=== PATIENT | female | born 1990 | race Caucasian/White ===

== ENCOUNTER 2019-06-24 13:27 | Emergency (ER) | payer OTHER ==
[~2019-06-24] VITALS: Ht 180.3 cm; Wt 87.1 kg
== END 2019-06-24 18:22 | disposition home or self-care (01) ==
LOC: ER 13:27
DX: O26.891 Other specified pregnancy related conditions, first trimester (principal); R73.9 Hyperglycemia, unspecified; Z34.82 Encounter for supervision of other normal pregnancy, second trimester

== ENCOUNTER 2019-07-06 12:43 | Emergency (ER) | payer OTHER ==
[~2019-07-06] VITALS: Ht 180.3 cm; Wt 99.8 kg
== END 2019-07-06 15:25 | disposition home or self-care (01) ==
LOC: ER 12:43
DX: M54.89 Other dorsalgia (principal)

== ENCOUNTER → 2019-09-05 | Outpatient (CLI) | payer OTHER | END | disposition home or self-care (01) | LOC: PRENATAL 10:00 | DX: O35.3XX0 Maternal care for (suspected) damage to fetus from viral disease in mother, not applicable or unspecified (principal); O34.219 Maternal care for unspecified type scar from previous cesarean delivery; O28.3 Abnormal ultrasonic finding on antenatal screening of mother; O28.1 Abnormal biochemical finding on antenatal screening of mother ==

== ENCOUNTER 2019-11-06 12:38 | Outpatient (CLI) | payer OTHER | END 2019-11-06 14:02 | disposition home or self-care (01) | LOC: NST 12:38 | DX: Z34.83 Encounter for supervision of other normal pregnancy, third trimester (principal) ==

== ENCOUNTER → 2019-11-07 | Outpatient (CLI) | payer OTHER | END | disposition home or self-care (01) | LOC: PRENATAL 10:00 | DX: O26.843 Uterine size-date discrepancy, third trimester (principal); O28.3 Abnormal ultrasonic finding on antenatal screening of mother; O34.211 Maternal care for low transverse scar from previous cesarean delivery ==

== ENCOUNTER 2020-01-19 09:39 | Inpatient (IN) | payer OTHER ==
[~2020-01-19] VITALS: Ht 180.3 cm; Wt 90.7 kg
[2020-01-19] MEDS ORDERED: PRENATAL TABLE1 EACH PO (10:27)
== END 2020-01-22 16:09 | disposition home or self-care (01) | DRG 785 ==
LOC: OB/GYN 09:39 → LDR 09:39 → O/R 14:44 → OB/GYN 17:37
PROVIDERS: ADMIT Obstetrics & Gynecology
PROC: 0UL70ZZ Occlusion of Bilateral Fallopian Tubes, Open Approach (ICD-10-PCS; 2020-01-19)
PROC: 4A1HXCZ Monitoring of Products of Conception, Cardiac Rate, External Approach (ICD-10-PCS; 2020-01-19)
PROC: 10D00Z1 Extraction of Products of Conception, Low, Open Approach (ICD-10-PCS; principal; 2020-01-19 19:45)
DX: O82 Encounter for cesarean delivery without indication (principal); Z3A.39 39 weeks gestation of pregnancy; Z37.0 Single live birth; Z30.2 Encounter for sterilization